=== PATIENT | female | born 1935 | race Caucasian/White ===

== ENCOUNTER 2018-01-04 23:09 | Emergency (ER) | payer MEDICARE ==
[2018-01-04 23:55] LABS: BASO % 0.2 % (0-6); EOS % 0.1 % (0-6); GRAN % 71.5 % (47-80); HEMATOCRIT 36.4 % (35.0-47.0); HEMOGLOBIN 12.6 gm/dl (11.6-16.0); LYMPH % 22.7 % (16-45); MEAN CELL VOLUME 93.1 fl (81-97); MEAN CORPUSCULAR HEMOGLOBIN 32.2 pg (27-33); MEAN CORPUSCULAR HGB CONC 34.6 g/dl (32-36); MEAN PLATELET VOLUME 10.6 fl (7.4-10.4); MONO % 5.5 % (0-9); PLATELET COUNT 246 K/uL (130-400); RED BLOOD COUNT 3.91 M/uL (3.80-5.40); RED CELL DISTRIBUTION WIDTH 12.2 % (11.5-14.5); WHITE BLOOD COUNT W/O DIFF 10.6 K/uL (4.2-12.2)
[2018-01-04] MEDS: SODIUM CHLORIDE 0.9% 500 ML IV ONE (23:55)
[2018-01-05 00:11] LABS: ALBUMIN 4.3 g/dL (4.0-5.0); ALKALINE PHOSPHATASE 61 U/L (35-104); ALT/SGPT 13 U/L (<33); AST/SGOT 20 U/L (10.0-35.0); BLOOD UREA NITROGEN 12 mg/dL (8-23); CREATININE 0.9 mg/dL (0.5-0.9); EST GLOMERULAR FILTRATION RATE > 60 mL/min
[2018-01-05 00:12] LABS: ALB/GLOB RATIO 1.5 (1.1-1.8); GLUCOSE,RANDOM 137 mg/dL (74-109); LIPASE 27 U/L (13-60); TOTAL PROTEIN 7.1 g/dL (6.6-8.7)
[2018-01-05 00:58] LABS: URINE APPEARANCE CLEAR; URINE BILIRUBIN NEGATIVE (NEGATIVE); URINE BLOOD NEGATIVE (NEGATIVE); URINE COLOR YELLOW; URINE GLUCOSE (UA) NEGATIVE (NEGATIVE); URINE KETONE TRACE (NEGATIVE); URINE LEUKOCYTE ESTERASE NEGATIVE (NEGATIVE); URINE NITRITE NEGATIVE (NEGATIVE); URINE PROTEIN NEGATIVE (NEGATIVE); URINE UROBILINOGEN 0.2 E.U./dL (0.20 - 1.00)
[2018-01-05] MEDS ORDERED: PIPERACILLIN SODIUM/TAZOBACTAM 3.375 GM in 0.9 % SODIUM CHLORIDE 100ML 100 ML IVPB ONE (02:37)
--- NOTE | 2018-01-05 02:37 | Emergency Department Record ---
History of Present Illness - General Chief Complaint: Abdominal Pain Stated Complaint: ABD PAIN,BLOATED Time Seen by Provider: 01/04/18 23:35 Source: Patient Mode of Arrival: Ambulatory Limitations: No limitations - History of Present Illness Initial Comments: pt has had rlq pain all day which is getting worse MD Complaint: Abdominal pain Onset/Timin -: Days(s) Location: RLQ Radiation: Suprapubic, LLQ Severity: Moderate Quality: Cramping, Fullness Consistency: Constant, Getting worse Improves With: Nothing Worsens With: Movement Associated Symptoms: Chills - Related Data Patient : No Home Medications Medication Instructions Recorded Confirmed Last Taken Donepezil HCl [Aricept] 5 mg PO DAILY 01/04/18 01/04/18 01/04/18 Magnesium Oxide [Magnesium] 250 mg PO DAILY 01/04/18 01/04/18 01/04/18 Red Bud-3/Dha/Epa/Fish Oil [Fish Oil 1 each PO DAILY 01/04/18 01/04/18 01/04/18 1,000 mg Softgel] Ropinirole HCl [Requip] 0.5 mg PO DAILY 01/04/18 01/04/18 01/04/18 Simvastatin 40 mg PO DAILY 01/04/18 01/04/18 01/04/18 Allergies Allergy/AdvReac Type Severity Reaction Status Date / Time No Known Drug Allergies Allergy Verified 01/04/18 23:15 Travel Screening - Travel/Exposure Within Last 30 Days Have you traveled within the last 30 days?: No Review of Systems Reviewed: No additional complaints except as noted below Constitutional: Reports: As per HPI. Denies: Chills, Fever, Malaise, Night sweats, Weakness, Weight change Eyes: Reports: As per HPI. Denies: Eye discharge, Eye pain, Photophobia, Vision change ENT: Reports: As per HPI. Denies: Congestion, Dental pain, Ear pain, Epistaxis , Hearing loss, Throat pain Respiratory: Reports: As per HPI. Denies: Cough, Dyspnea, Hemoptysis, Stridor, Wheezes Cardiovascular: Reports: As per HPI. Denies: Arrhythmia, Chest pain, Dyspnea on exertion, Edema, Murmurs, Orthopnea, Palpitations, Paroxysmal nocturnal dyspnea, Rheumatic Fever, Syncope Endocrine: Reports: As per HPI. Denies: Fatigue, Heat or cold intolerance, Polydipsia, Polyuria Gastrointestinal: Reports: As per HPI, Abdominal pain. Denies: Constipation, Diarrhea, Hematemesis, Hematochezia, Melena, Nausea, Vomiting Genitourinary: Reports: As per HPI. Denies: Abnormal menses, Discharge, Dyspareunia, Dysuria, Frequency, Hematuria, Incontinence, Retention, Urgency Musculoskeletal: Reports: As per HPI. Denies: Arthralgia, Back pain, Gout, Joint swelling, Myalgia, Neck pain Skin: Reports: As per HPI. Denies: Bruising, Change in color, Change in hair/ nails, Lesions, Pruritus, Rash Neurological: Reports: As per HPI. Denies: Abnormal gait, Confusion, Headache, Numbness, Paresthesias, Seizure, Tingling, Tremors, Vertigo, Weakness Psychiatric: Reports: As per HPI. Denies: Anxiety, Auditory hallucinations, Depression, Homicidal thoughts, Suicidal thoughts, Visual hallucinations Hematological/Lymphatic: Reports: As per HPI. Denies: Anemia, Blood Clots, Easy bleeding, Easy bruising, Swollen glands Past Medical History - SOCIAL HISTORY Smoking Status: Never smoker Alcohol Use: None Drug Use: None - RESPIRATORY Hx Respiratory Disorders: No - CARDIOVASCULAR Hx Cardio Disorders: No Comment:: high cholesterol - NEURO Hx Neuro Disorders: Yes Hx Dementia: Yes - GI Hx GI Disorders: No - Hx Genitourinary Disorders: No - ENDOCRINE Hx Endocrine Disorders: No - MUSCULOSKELETAL Hx Musculoskeletal Disorders: Yes Comment:: leg cramping - PSYCH Hx Psych Problems: No - HEMATOLOGY/ONCOLOGY Hx Hematology/Oncology Disorders: No Family Medical History Any Significant Family History?: Yes Hx Heart Disease: Brother/Sister *Heart Comment: HEART ATTACK Hx Stroke: Mother Physical Exam - General General Appearance: Alert, Oriented x3, Cooperative, Mild distress - Head Head exam: Normal inspection - Eye Eye exam: Normal appearance, PERRL, EOMI Pupils: Normal accommodation - ENT ENT exam: Normal exam, Mucous membranes moist, Normal external ear exam, Normal orophraynx Ear exam: Normal external inspection. negative: External canal tenderness Nasal Exam: Normal inspection. negative: Discharge, Sinus tenderness Mouth exam: Normal external inspection, Tongue normal Teeth exam: Normal inspection. negative: Dental caries Throat exam: Normal inspection. negative: Tonsillar erythema, Tonsillar exudate - Neck Neck exam: Normal inspection, Full ROM. negative: Tenderness - Respiratory Respiratory exam: Normal lung sounds bilaterally. negative: Respiratory distress - Cardiovascular Cardiovascular Exam: Regular rate, Normal rhythm, Normal heart sounds - GI/Abdominal GI/Abdominal exam: Soft, Normal bowel sounds, Tenderness - Rectal Rectal exam: Deferred - exam: Deferred - Extremities Extremities exam: Normal inspection, Full ROM, Normal capillary refill. negative: Tenderness - Back Back exam: Reports: Normal inspection, Full ROM. Denies: Muscle spasm, Rash noted, Tenderness - Neurological Neurological exam: Alert, Normal gait, Oriented X3, Reflexes normal - Psychiatric Psychiatric exam: Normal affect, Normal mood - Skin Skin exam: Dry, Intact, Normal color, Warm Course Vital Signs 01/04/18 01/05/18 23:17 01:03 Temperature 97.9 F 97.8 F Pulse Rate [ 78 94 H Pulse Ox Probe] Respiratory 16 16 Rate Blood Pressure 118/63 112/52 [Left Arm] Pulse Ox 98 96 Medical Decision Making - Lab Data Result diagrams: 01/04/18 23:22 01/04/18 23:22 Lab Results 01/04/18 01/04/18 01/04/18 Range/Units 23:22 23:22 23:22 WBC 10.6 (4.2-12.2) K/uL RBC 3.91 (3.80-5.40) M/uL Hgb 12.6 (11.6-16.0) gm/dl Hct 36.4 (35.0-47.0) % MCV 93.1 (81-97) fl MCH 32.2 (27-33) pg MCHC 34.6 (32-36) g/dl RDW 12.2 (11.5-14.5) % Plt Count 246 (130-400) K/uL MPV 10.6 H (7.4-10.4) fl Gran % 71.5 (47-80) % Lymphocytes % 22.7 (16-45) % Monocytes % 5.5 (0-9) % Eosinophils % 0.1 (0-6) % Basophils % 0.2 (0-6) % Sodium 138 (136-145) mmol/L Potassium 4.0 (3.4-4.5) mmol/L Chloride 98 (98-107) mmol/L Carbon Dioxide 25.0 (22-29) mmol/L Anion Gap 15.0 (7-16) BUN 12 (8-23) mg/dL Creatinine 0.9 (0.5-0.9) mg/dL Estimated GFR > 60 mL/min Random Glucose 137 H (74-109) mg/dL Lactic Acid 1.4 (0.5-2.2) mmol/L Calcium 9.4 (8.8-10.2) mg/dL Total Bilirubin 1.10 H (0.2-1.0) mg/dL AST 20 (10.0-35.0) U/L ALT 13 (<33) U/L Alkaline Phosphatase 61 (35-104) U/L Total Protein 7.1 (6.6-8.7) g/dL Albumin 4.3 (4.0-5.0) g/dL Globulin 2.8 (1.4-4.8) gm/dL Albumin/Globulin Ratio 1.5 (1.1-1.8) Lipase 27 (13-60) U/L Urine Color Urine Appearance Urine pH (5.0-8.0) Ur Specific [place] (1.002-1.030) Urine Protein (NEGATIVE) Urine Glucose (UA) (NEGATIVE) Urine Ketones (NEGATIVE) Urine Blood (NEGATIVE) Urine Nitrite (NEGATIVE) Urine Bilirubin (NEGATIVE) Urine Urobilinogen (0.20 - 1.00) E.U./dL Ur Leukocyte Esterase (NEGATIVE) 01/05/18 Range/Units 00:59 WBC (4.2-12.2) K/uL RBC (3.80-5.40) M/uL Hgb (11.6-16.0) gm/dl Hct (35.0-47.0) % MCV (81-97) fl MCH (27-33) pg MCHC (32-36) g/dl RDW (11.5-14.5) % Plt Count (130-400) K/uL MPV (7.4-10.4) fl Gran % (47-80) % Lymphocytes % (16-45) % Monocytes % (0-9) % Eosinophils % (0-6) % Basophils % (0-6) % Sodium (136-145) mmol/L Potassium (3.4-4.5) mmol/L Chloride (98-107) mmol/L Carbon Dioxide (22-29) mmol/L Anion Gap (7-16) BUN (8-23) mg/dL Creatinine (0.5-0.9) mg/dL Estimated GFR mL/min Random Glucose (74-109) mg/dL Lactic Acid (0.5-2.2) mmol/L Calcium (8.8-10.2) mg/dL Total Bilirubin (0.2-1.0) mg/dL AST (10.0-35.0) U/L ALT (<33) U/L Alkaline Phosphatase (35-104) U/L Total Protein (6.6-8.7) g/dL Albumin (4.0-5.0) g/dL Globulin (1.4-4.8) gm/dL Albumin/Globulin Ratio (1.1-1.8) Lipase (13-60) U/L Urine Color Yellow Urine Appearance Clear Urine pH 8.5 (5.0-8.0) Ur Specific [place] 1.010 (1.002-1.030) Urine Protein Negative (NEGATIVE) Urine Glucose (UA) Negative (NEGATIVE) Urine Ketones Trace H (NEGATIVE) Urine Blood Negative (NEGATIVE) Urine Nitrite Negative (NEGATIVE) Urine Bilirubin Negative (NEGATIVE) Urine Urobilinogen 0.2 (0.20 - 1.00) E.U./dL Ur Leukocyte Esterase Negative (NEGATIVE) Disposition Disposition: Transfer Clinical Impression: Acute appendicitis with localized peritonitis Disposition: Acute Care Hospital Transfer Transfer To: [facility] Reason For Transfer: acute appendicitis with perforation and peritonitis Accepting Physician: dr mora Time Discussed w/Accepting Physician: 03:01 Forms: Patient Portal Access Quality - Quality Measures Quality Measures: N/A - Blood Pressure Screening Does Patient Have Any of the Following: No Blood Pressure Classification: Normal BP Reading Systolic Measurement: 110 Diastolic Measurement: 56 Screening for High Blood Pressure: < Normal BP, F/U Not Required > [G8783]
[2018-01-05] MEDS: AMPICILLIN SODIUM/SULBACTAM NA 3 G in 0.9 % SODIUM CHLORIDE 100ML 100 ML IVPB ONE (02:48)
[2018-01-05] MEDS: MORPHINE SULFATE 5 MG/ML PFS IVP ONE (03:14)
--- NOTE | 2018-01-06 08:15 | CT SCAN REPORT ---
EXAM: EMERGENCY CT SCAN OF THE ABDOMEN AND PELVIS WITH CONTRAST HISTORY: LOW ABDOMINAL PAIN AND BLOATING STARTING TODAY. TECHNIQUE: Axial CT scan of the abdomen and pelvis was obtained following both oral and IV contrast administration utilizing a dose of 100 ml of Omnipaque 300 as the IV contrast. A preliminary report was provided by [facility]. Comparison: None. FINDINGS: No calcified gallstones are seen within the gallbladder. No definite hepatic, splenic, adrenal, pancreatic, or renal mass identified. A small amount of oral contrast in the lower esophagus may represent some gastroesophageal reflux. There is probably a small hiatal hernia present as well. Moderate diverticulosis left side of the colon, but no definite diverticulitis identified. The appendix appears distended measuring about 10.7 mm in diameter. In addition there are inflammatory type changes about the appendix consistent with acute appendicitis. There appear to be a couple air droplets outside of the bowel lumen probably representing a microperforation of the appendix as well. There is some mild free fluid in the pelvis which appears to extend into bilateral small inguinal hernias. There is a suggestion of a few tiny droplets of free intraperitoneal air as well. Degenerative changes in the lumbar spine with advanced degenerative disk disease at the L4-L5 interspace and less so at the L2-L3 interspace, and with facet joint arthropathy particularly at the L4-L5 level with mild anterior subluxation of L4 on L5. IMPRESSION: 1. FINDINGS CONSISTENT WITH ACUTE APPENDICITIS PROBABLY WITH AT LEAST LOCALIZED MICROPERFORATION AND PROBABLY ALSO A SMALL AMOUNT OF FREE INTRAPERITONEAL AIR. 2. MODERATE LEFT SIDED DIVERTICULOSIS, BUT NO DEFINITE DIVERTICULITIS EVIDENT. 3. SOME MILD FREE FLUID IN THE PELVIS INCLUDING EXTENDING INTO A COUPLE SMALL INGUINAL HERNIAS. 4. DEGENERATIVE CHANGES IN THE LUMBAR SPINE PARTICULARLY AT THE L4-L5 LEVEL. 5. SMALL HIATAL HERNIA AND PROBABLY A SMALL AMOUNT OF GASTROESOPHAGEAL REFLUX. JOB NUMBER: [id number] [facility]
== END 2018-01-05 03:16 | disposition short-term general hospital (02) ==
LOC: ER 23:09
DX: K35.3 Acute appendicitis with localized peritonitis (principal)
CPT/HCPCS: 74177; 80053; 81003; 83605; 83690; 85025; 96374; 96375; 99285; J0295